=== PATIENT | male | born 1995 | race Two or more races ===

== ENCOUNTER → 2025-04-12 | Outpatient (BNVA) | payer BC, SELFPAY | END | disposition home or self-care (01) | PROVIDERS: PCP Physician Assistant; Referring Provider Physician Assistant; Visit Provider Urology | DX: Z30.2 Encounter for sterilization (principal) | CPT/HCPCS: 81003; 99212; G0463 ==

== ENCOUNTER 2025-04-18 06:15 | Day surgery (SDC) | payer BC, SELFPAY ==
[2025-04-17 12:34] VITALS: BMI 30.5
--- NOTE | 2025-04-17 14:58 | SUR.PREOP ---
Pt notified to come in at 0630 tomorrow for surgery.
[2025-04-18] VITALS (8 sets, daily range): BP systolic 95–126; BP diastolic 57–84; PULSE 68–88; RESP 14–19; TEMP 36.2–36.4; O2SAT 98–100; BMI 30.4
[2025-04-18] MEDS: RINGERS LACTATED 1000 ML 1,000 ML 20 ML IV (06:50)
--- NOTE | 2025-04-18 07:20 | CHAP ---
Visited with patient and gave encouragement and prayer before patient's procedure.
--- NOTE | 2025-04-18 09:55 | SUR.PHASEI ---
pt received from OR in recovery bay 5. pt asleep but responds to voice, breathing unlabored on oxymask 6l. v/s stable. pt dressing to scrotum cdi. report received from Dr. Sheppard and Dustin LEON.
--- NOTE | 2025-04-18 10:18 | PD.SUROPNT ---
Date of Procedure 04/18/25 Pre Op Diagnosis Elective sterilization Post Op Diagnosis Same Procedure Bilateral vasectomy Findings Bilateral breast no pathology Procedure Description Indication for procedure this is a 29-year-old gentleman he is with children. Desired bilateral vasectomy procedure and complications were discussed with patient in great detail informed consent is obtained he understood very well there is no warranty for permanent sterilization literature regarding bilateral vasectomy was provided to the patient Patient was brought to the operating room in a satisfactory condition after appropriate premedication he was appropriately identified by surgeon and operating room staff site scope and indications of the procedure were reconfirmed with the patient, patient was positioned on the operating table in a spine position general anesthesia was given uneventfully . parts were prepped and draped in a usual sterile fashion. Next the right vas deferens was palpated between 2 fingers and a thumb 2% lidocaine with quarter percent Marcaine was instilled appropriately vertical skin incision was made proper hemostasis was secured. Next the vas deferens was brought into the incision it was from its various fascial coverings between 2 silver clips centimeter of the vas deferens was excised. The lumen of the vas deferens was diathermized with coagulation diathermy distal end of the vas deferens was buried between various fascial layers. Skin was approximated with 3-0 chromic. Similar procedure was repeated on the opposite side. Next this sterile dressings were applied. Pressure bandage was given Patient having tolerated the procedure well and was sent to recovery room in a satisfactory condition to be discharged home with full postoperative instructions were verbally as well as in writing to be followed in urology office in12 weeks' time. Still to use contraception until semen analysis is done in 3 months and semen shows no sperm follow-up appointment is given Anesthesia GETA Pathology / specimen None Estimated Blood Loss 0.2 Condition Stable Disposition PACU Surgeon Eryn Chicas MD Surgical Staff Operation Date: 04/18/25 08:30 Case Staff Anesthesiologist: Edward Sheppard
--- NOTE | 2025-04-18 10:31 | SUR.PHASEII ---
pt able to tolerate oral fluids without difficulty swallowing or nausea/vomiting.
--- NOTE | 2025-04-18 11:05 | SUR.PHASEII ---
pt awake and alert, breathing unlabored on room air. v/s stable. pt dressing to scrotal area cdi. pt able to ambulate to wheelchair with steady gait. d/c instructions given Mia over the phone (child presence) and pt in room, all questions answered. pt d/c via wheelchair with all belongings.
== END 2025-04-18 11:05 | disposition home or self-care (01) ==
PROVIDERS: PCP Physician Assistant; Referring Provider Urology; Visit Provider Urology
PROC: (CPT 55250; principal; 2025-04-18 08:30)
DX: Z30.2 Encounter for sterilization (principal)
CPT/HCPCS: 55250; A4649; J0131; J1100; J1885; J2250; J2405; J2704; J3010; J3490; J7120; A9270